=== PATIENT | male | born 1945 | race Caucasian/White ===

== ENCOUNTER → 2017-06-24 | Outpatient (CLI) | payer OTHER, MEDICARE ==
[~2017-06-24] MED LIST: HYDR25SU20 PR; LISI-461 PO; MULT-506 PO; SERT50TA PO
--- NOTE | 2017-06-25 05:51 | PAP/PSG TECHNICIAN REPORT ---
[facility] Customs Compliance Director Polysomnogram Report Study name: None Report date: 06/25/2017 Study date: 06/24/2017 Referring Physician: Dr. Joselyn Diallo M.D. Name: KELLI CAZARES Interpreting Physician: Rhys Jason M.D. Date of : 1945 Customs Compliance Director: Mya Johnson RPS. Sex: Male Age: 71 StudyType: PSG Weight: 191 lbs Height: 71 years, Height 5' 6" Neck Circum: 16.5 inches BMI: 30.82 Medications: Lisinopril 10 mg, Sertraline 50 mg Patient History 71 yr. old male here for a modified split night sleep study if AHI >15 in room 5. Patient also has upper limb monitoring for RBD. Patients complains of EDS. Sylvester Sleepiness Scale Score is 14/24. Parameters Monitored NPSG: E1-M2, E2-M1, Fp1-M2, Fp2-M1, F3-M2, F4-M2, F4-M1, C3-M2, C4-M2, C4-M1, O1-M2, O2-M2, O2-M1, T3-M2, T4-M1, P3-M2, P4-M1, CHIN1, CHIN2, HR, EKG, Legs, PFLOW, SNOR, FLOW, CFLOW, Tidal Volume, THOR, ABDO, SpO2, PLTH, CPRESS, ETCO2 Wave, ETCO2, pH Sleep Architecture Sleep Stages Time at Lights Off 10:16:12 PM STAGES Time (min.) TST (%) Time at Lights On 5:37:42 AM Wake 64.0 -- Total Recording Time (TRT) 441.50 min. N1 34.0 9 Total Sleep Period (TSP) 432.0 min. N2 251.0 66 Total Sleep Time (TST) 377.5min. N3 40.5 11 Awake Time 64.0 min. REM 52.0 14 Wake after Sleep Onset 54.5 min. Sleep Efficiency (SE) 86 % Sleep Onset Latency (RADHA) 9.5 min. Number of Stage 1 Shifts None Awakenings 19 Stage Changes 83 Number of REM periods 6 REM 52.0 14 REM Latency 172.5 min. NREM 325.5 86 Body Position Analysis Supine Right Left Side Prone Vertical Total Sleep Time (min.) 221.2 97.5 114.0 211.50 0.0 0.0 Total Sleep Time (%) 44% 26% 30% 56 0% N/A% Total Sleep Time REM (min.) 6.5 33.5 12.0 None 0.0 0.0 Total Sleep Time NREM (min.) 159.5 64.0 102.0 None 0.0 0.0 Intermittent Wake (min.) 55.2 6.2 2.7 None 0.0 0.0 Total Sleep Period (%) 49% None None None None None Arousals Myoclonus (PLM) * Events Count Index Events Count Index Spontaneous 5 1 Events Awake (PLMW) 53 49.7 Respiratory 3 0.6 Events Asleep w/ Arousal (PLMA) 12 1.9 PLM 12 2 Events Asleep w/o Arousal (PLMS) 311 49.4 Snoring 8 1 Total Asleep 323 51.3 Total 28 4 Total 376 51 Respiratory Analysis * CA OA MA CH H RERA Total Count 19 21 6 0 76 0 122 Index 3.0 3.3 1.0 0 12.1 0 19.4 Mean Duration 19.9 18.3 24.6 0.00 25.0 0.0 23.0 Longest Duration 30.8 27.3 36.2 0.00 36.2 0.0 53.0 Respiratory Event Summary Total Supine ~Supine Right Left Prone REM NREM Apneas Count 46 40 6 1 5 N/A 8 38 Index 7.3 14 2 0.6 2.6 N/A 9 7 Hypopneas (4% Desat) Count 76 62 14 4 10 N/A 4 72 Index 12.1 22.4 4 2.5 5.3 N/A 4.6 13.3 Apneas & All Hypopneas Count 122 102 20 5 15 N/A 12 110 Index 19.4 37 6 3 8 N/A 13.8 20.3 Respiratory Events (Ice [employer]er+All Hyp+RERA) Count 122 102 20 5 15 N/A 12 110 Index 19.4 37 6 3.1 7.9 N/A 13.8 20.3 Respiratory Related Arousal Count 3 102 0 0 0 N/A 1 3 Index 0.6 1 0 0 0 N/A 1 1 Snoring Analysis Supine Right Left Prone REM NREM Total Snore duration 6.4 min Snores count 208 33 9 N/A 52 198 250 Snore mean duration 1.5 Sec Snores index 75 20 5 N/A 60.0 36.5 39.7 TST with snoring (%) 1.7% Desaturation Event Summary: Minimum %SpO2 Event Count Mean/Min/Max Duration(sec.) Desaturation Index % Time In Bed > 90 119 23.5 / 11.0 / 55.3 17.8 92.2 86 - 90 0 N/A 0.0 7.6 81 - 85 1 16.8 / 16.8 / 16.8 62.6 0.2 76 - 80 0 N/A 0.0 0.0 71 - 75 0 N/A 0.0 0.0 66 - 70 0 N/A 0.0 0.0 61 - 65 0 N/A 0.0 0.0 56 - 60 0 N/A 0.0 0.0 51 - 55 0 N/A 0.0 0.0 < 50 0 N/A 0.0 0.0 Total REM NREM Awake <50% 0.0 min. 0.0 min. 0.0 min. 0.0 min. 51 - 60% 0.0 min. 0.0 min. 0.0 min. 0.0 min. 61 - 70% 0.0 min. 0.0 min. 0.0 min. 0.0 min. 71 - 80% 0.0 min. 0.0 min. 0.0 min. 0.0 min. 81 - 90% 34.2 min. 4.0 min. 27.8 min. 2.4 min. 91 - 100% 402.2 min. 47.9 min. 297.7 min. 56.6 min. Average 92 92 92 93 Minimum SpO2 83 87 83 83 Desaturation Event Index 16.3 15.0 18.4 6.6 # Desat. Events below 89% 28 3 22 3 Time(%) with Saturation below 89% 1.2 0.0 0.9 0.2 Time(min.) with Saturation below 89% 5.2 0.2 4.0 1.0 Time (mins) REM (mins) NREM (mins) % of TST SpO2 Below 90% 104 12 N92 2.7 SpO2 Below 88% 11 0 0 0 Heart Rate Analysis Min (bpm) Max (bpm) Average (bpm) Awake 43 196 66 NREM 43 76 53 REM 45 72 59 Overall 43 76 54 Supplemental O2 Values Minimum O2 level: None Value Start Time End Time Customs Compliance Director Comments Mr. Cazares's AHI at 2:45 pm was 10.3, he did not qualify for a split night sleep study. slept in the right, left, and supine positions. No cardiac arrhythmia. PLMs noted. No RBD noted. No bruxism noted. Snoring was noted and scored as a 3 on a scale of 0 through 5. (0=no snoring, 5=snoring loud enough to be heard through a closed door or down the joshi way) Mr. Cazares awoke to use the restroom once during the night. Mr. Cazares stated, "that was a normal night. The final report will be interpreted and signed by a sleep physician. The completed physician report will then be placed in the patient medical record. Therapy (cm H2O) 0 TIB (min.) 441.5 TST (min.) 377.5 Sleep Onset (min.) 9.5 REM Onset From Sleep (min.) 172.5 Sleep Efficiency % 86 Wakefulness (%) 14 Wakefulness (min.) 64.0 NREM 1 (%) 9 NREM 1 (min.) 34.0 NREM 2 (%) 66 NREM 2 (min.) 251.0 NREM 3 (%) 11 NREM 3 (min.) 40.5 REM (%) 14 REM (min.) 52.0 # Arousals 28 Arousal Index 4 # Snore 250 Snore Index 39.7 AHI 19.4 AHI Supine 37 AHI Non-Supine 6 NREM AHI 20.3 REM AHI 13.8 RDI 19.4 # Obstructive Apnea 21 # Central Apnea 19 # Mixed Apnea 6 # Hypopneas 76 RERAs 0 Total Respiratory Events 124 Time Below SpO2 89% (min.) 4.2 Mean NREM SpO2 (%) 92 Mean REM SpO2 (%) 92 Mean Sleep SpO2 (%) 92 Min NREM SpO2 (%) 83 Min REM SpO2 (%) 87 Position Supine (min.) 221.2 Position Non-supine (min.) 211.5 LM Index Sleep 51.3 LM Index NREM 53.6 LM Index REM 36.9 Mean Heart Rate (bpm) 54 Min Heart Rate (bpm) 43
--- NOTE | 2017-06-28 00:16 | POLYSOMNOGRAPH REPORT ---
CLINICAL DATA: A 71-year-old male with BMI of 30.[address] Diallo for a modified split night study. He has excessive daytime sleepiness. There was also a concern about REM behavior disorder. SLEEP ARCHITECTURE: Total sleep period was 432 minutes. Total sleep time was 377.5 minutes divided between 325 minutes of non-REM sleep and 52 minutes of REM sleep. Sleep onset latency was 9.5 minutes. REM latency was 172.5 minutes. Sleep efficiency was 86%. Wake after sleep onset was 54.5 minutes. Sleep consisted of stage N1 9%, stage N2 66%, stage N3 11%, and REM 14%. AROUSAL DATA: Twenty eight arousals were recorded for an index of 4 per hour. PERIODIC LIMB MOVEMENT DATA: Three hundred and twenty three limb movements during sleep were noted for an index of 51.3 per hour with arousal index of 1.9 per hour. RESPIRATORY DATA: Moderate sleep apnea was documented. The AHI was 19.4. There were 19 central, 21 obstructive, and 6 mixed apneic episodes. The longest apneic episode was 36.2 seconds. There were 76 hypopneic episodes with a mean duration of 25 seconds. OXIMETRY DATA: Mild nocturnal hypoxemia was seen. Oxygen jessa was 83% during non-REM sleep. Mean saturation was 93%. Time below 88% was 11 minutes. EKG: Heart rates ranged from 43-76 beats per minute. No arrhythmias were noted. DIRECTOR OF ENTERPRISE ARCHITECTURE'S COMMENTS: The patient did not meet split night criteria since his AHI at 2:45 a.m. was 10.3. He slept in the right, left, and supine positions. Snoring was moderate, rated 3 on a scale of 1-5. There was evidence of REM without atonia seen especially in the last REM period at the end of the night. IMPRESSION: 1. Moderate sleep apnea/hypopnea with mild nocturnal hypoxemia. 2. Evidence of increased EMG activity during REM sleep consistent with REM without atonia especially in his last REM. RECOMMENDATIONS: The patient should be considered for a repeat sleep study with CPAP. MTDD
== END | disposition home or self-care (01) ==
LOC: C.NEUR 20:00
PROVIDERS: ATTEND Internal Medicine
DX: G47.33 Obstructive sleep apnea (adult) (pediatric) (principal); G47.52 REM sleep behavior disorder

== ENCOUNTER 2023-07-16 11:04 | Observation (INO) ==
--- NOTE | 2023-06-16 11:59 | PAT Medication Instructions ---
Medication Instructions Date of Service June 16, 2023 Home Medications multivitamin 1 tab PO QAM sertraline 100 mg tablet 100 mg PO HS docosahexaenoic acid (dha)-epa capsule 1 cap PO HS lisinopril 20 mg tablet 20 mg PO BID metformin 500 mg tablet 500 mg PO QAM pravastatin 10 mg tablet 10 mg PO HS psyllium husk (with sugar) 3.4 gram/7 gram oral powder (Fiber (psyllium husk- sugar)) 1 tsp PO HS STOP taking 2 weeks before surgery (or as soon as possible if surgery is within 2 weeks) docosahexaenoic acid (dha)-epa capsule 1 cap PO HS DO NOT take the morning of surgery multivitamin 1 tab PO QAM lisinopril 20 mg tablet 20 mg PO BID metformin 500 mg tablet 500 mg PO QAM Take evening before surgery sertraline 100 mg tablet 100 mg PO HS lisinopril 20 mg tablet 20 mg PO BID pravastatin 10 mg tablet 10 mg PO HS psyllium husk (with sugar) 3.4 gram/7 gram oral powder (Fiber (psyllium husk- sugar)) 1 tsp PO HS Other Notes NOTHING TO EAT OR DRINK AFTER MIDNIGHT. If you have any questions please call us at [phone] or [phone] or [phone] or [phone]
--- NOTE | 2023-06-18 15:12 | Anesthesiology Consultation ---
Date of Service June 18, 2023 Assessment & Plan (1) Encounter for pre-operative examination: Chart Review Chart Review: Acceptable Risk for Surgery (pending surgeon ordered PCP clearance ) and Patient seen in Pre Admission Testing - Awaiting PCP clearance 06/24/23 ([facility]) - Check BSG AM DOS - Patient not an ideal OPJ candidate (currently 23 hour observation) Per PAT appt on 06/18/23, no recent illness/disease exposures, illness related symptoms, or recent illness/disease positive tests. Will leave to surgeon's discretion if preop Covid testing needed Teaching & Discussion Pre-Anesthesia Teaching/Discussion Notes: Instructed NPO after midnight before surgery,except medications with 15 cc of water. Medication instructions provided according to the [facility] guidelines. History Surgery Operation Date: 07/16/23 07:15 Proposed Procedures p Right Total Knee Arthroplasty - Aleksey Winter MD Height/Weight Height: 5 ft 6 in Weight: 78.3 kg Allergies Allergy/AdvReac Type Severity Reaction Status Date / Time No Known Allergies Allergy Unknown Verified 06/06/23 08:32 Medications Home Medications Medication Instructions Recorded Confirmed Last Taken multivitamin 1 tab PO QAM 10/28/18 06/06/23 Unknown sertraline 100 mg tablet 100 mg PO HS 10/28/18 06/06/23 Unknown docosahexaenoic acid (dha)-epa 1 cap PO HS 06/06/23 06/06/23 Unknown capsule lisinopril 20 mg tablet 20 mg PO BID 06/06/23 06/06/23 Unknown metformin 500 mg tablet 500 mg PO QAM 06/06/23 06/06/23 Unknown pravastatin 10 mg tablet 10 mg PO HS 06/06/23 06/06/23 Unknown psyllium husk (with sugar) 3.4 1 tsp PO HS 06/06/23 06/06/23 Unknown gram/7 gram oral powder (Fiber (psyllium husk-sugar)) Past Medical History Medical History Diabetes mellitus, type 2 Recently started Meformin (around Apr 2023) Guillain-Ross disease - hx, 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--per pt "was hunting on rainy, cold fall day and got soaked and developed a droop in his face"--completely went away, no further issues, pt questions if he really had this - no etiology known; no issues since then Hearing deficit Hearing aids bilaterally Hyperlipidemia Hypertension Post traumatic stress disorder Sleep apnea bipap Exercise / Class Metabolic Activity II 4-5 Yardwork/Stairs/Walk up hill (one flight of stairs- no chest pain or SOB; uses to ambulate when outside ) Past Family History Family History Other No family history of adverse response to anesthesia Past Surgical History Surgical History History of appendectomy History of cardiac cath 09/2015 @ [facility] "failed stress test @ [facility], had stress test due to breathing difficulty (worked in [employer])"--no stents History of colonoscopy History of left hip replacement History of repair of right rotator cuff History of tooth extraction upper denture Past Anesthesia History No Hx of Anesthesia Complications and No Family Hx of Anesthesia Complications History of PONV No Hx of PONV and No Hx of Motion Sickness Social History Smoking Status: Former smoker Do You Dip or Chew Tobacco: No (quit 40yrs ago) Smoking End Date: quit 50+yrs ago Hx Alcohol Use: No Hx Substance Use: No substance use type: does not use Review of Systems Patient denies chest pain, shortness of breath, dyspnea on exertion, reflux, cough, wheezing, palpitations. No hx of seizures, stroke, CA. No hx of blood clots or blood transfusions Physical Exam Vital Signs VITALS BP 103/64 P 71 TEMP 98.5 SP02 96% RESP 16 Constitutional no acute distress ENMT Mouth: no TMJ clicking Thyromental Distance: > or= 3.5 Finger Breadths (3.5) Mallampati Class: II Full denture on the top Missing all teeth on the bottom Neck + limited neck extension Respiratory normal respiratory effort; no respiratory distress Auscultation: lungs clear to auscultation bilaterally; no wheezes Cardiovascular Rate/Rhythm: regular rate and regular rhythm Heart Sounds: no murmur Vessels: no carotid bruit Musculoskeletal Spine: no pain with cervical ROM Extremities: extremities normal to inspection Psychiatric Orientation: alert Lab Results Anesthesia Preop Results Results Anesthesia Widget: WBC 5.26 K/ul (4.8-10.8) 06/18/23 Hgb 13.3 g/dl (14.0-18.0) L 06/18/23 Hct 38.7 % (42.0-52.0) L 06/18/23 Plt 188 K/uL (130-400) 06/18/23 Na 140 mmol/L (136-145) 06/18/23 K 4.0 mmol/L (3.5-5.1) 06/18/23 Cl 107 mmol/L (98-107) 06/18/23 CO2 27 mmol/L (21-32) 06/18/23 BUN 29 mg/dl (6-23) H 06/18/23 Creat 0.99 mg/dl (0.6-1.4) 06/18/23 Glucose Level 195 mg/dl (70-99(Fasting)) H 06/18/23 PT 11.1 Seconds (9.0-12.0) 06/18/23 PTT 29 Seconds (21-31) 06/18/23 INR 1.0 (0.9-1.1) 06/18/23 HA1c 7.2 % (4.5-5.6) H 06/18/23 Urine Color Dark Yellow 06/18/23 Urine Appearance Clear (Clear) 06/18/23 Urine pH 5.0 (4.5-7.5) 06/18/23 Urine Specific Barton 1.027 (1.000-1.030) 06/18/23 Urine Protein Negative (Negative) 06/18/23 Urine Glucose (UA) Negative (Negative) 06/18/23 Urine Ketones Trace (Negative) H 06/18/23 Urine Blood Negative (Negative) 06/18/23 Urine Nitrite Negative (Negative) 06/18/23 Urine Bilirubin Negative (Negative) 06/18/23 Urine Urobilinogen Negative (Negative) 06/18/23 Urine Leukocyte Esterase Negative (Negative) 06/18/23 Blood Type AB Positive 06/18/23 Antibody Screen NEGATIVE 06/18/23 Testing Electrocardiogram Date: 06/18/23 Findings: + NSR @ (68bpm) Normal EKG per cardio Chest X-Ray Date: 06/18/23 FINDINGS: PA and lateral chest radiographs are compared to study dated 11/05/2013. The cardiomediastinal silhouette is top normal for projection noting atherosclerotic calcification of the thoracic aorta. The lungs and pleural spaces are clear. There is no pneumothorax. The skeletal structures are osteopenic. The bony thorax appears intact. Arthritic change is noted in the left shoulder a right shoulder arthroplasty is in place. Degenerative change and scoliosis is seen in the spine. IMPRESSION: No active disease in the chest.
--- NOTE | 2023-07-06 09:31 | History & Physical Report ---
Date of Service July 06, 2023 Assessment & Plan (1) Osteoarthritis of right knee: Plan: Right knee end-stage osteoarthritis. Grade 4 osteoarthritis failed conservative management. Bone loss medial compartment. Plan is to proceed with a right total knee replacement. Risks and benefits discussed. Plan for persona total knee replacement CPS tibial insert and tibial cemented stem. History of Present Illness Chief Complaint: Right knee pain Primary Care Provider: Fermin Ortega MD 77-year-old male with chronic progressive right knee pain failed conservative management. Had previous steroid and viscosupplementation injections. Injections are no longer helping. Patient denies headaches, sweats, fevers, chills, double vision, blurred vision, cough, sore throat, dysphagia, chest pain, sob, wheezing, n/v/d/c, fatigue, urinary symptoms. ROS positive for sleep apnea snoring, hypertension, left hand numbness, anxiety/depression, questionable easy bruising degenerative arthritis. Allergies Allergy/AdvReac Type Severity Reaction Status Date / Time No Known Allergies Allergy Unknown Verified 06/06/23 08:32 Home Medications Medication Instructions Recorded Confirmed Type multivitamin 1 tab PO QAM 10/28/18 06/06/23 History sertraline 100 mg tablet 100 mg PO HS 10/28/18 06/06/23 History docosahexaenoic acid (dha)-epa 1 cap PO HS 06/06/23 06/06/23 History capsule lisinopril 20 mg tablet 20 mg PO BID 06/06/23 06/06/23 History metformin 500 mg tablet 500 mg PO QAM 06/06/23 06/06/23 History pravastatin 10 mg tablet 10 mg PO HS 06/06/23 06/06/23 History psyllium husk (with sugar) 3.4 1 tsp PO HS 06/06/23 06/06/23 History gram/7 gram oral powder (Fiber (psyllium husk-sugar)) Past Med/Surg History Medical History Diabetes mellitus, type 2 Recently started Meformin (around Apr 2023) Hearing deficit Hearing aids bilaterally Post traumatic stress disorder Hyperlipidemia Sleep apnea bipap Hypertension Guillain-[place] disease - hx, 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--per pt "was hunting on rainy, cold fall day and got soaked and developed a droop in his face"--completely went away, no further issues, pt questions if he really had this - no etiology known; no issues since then Surgical History History of cardiac cath 09/2015 @ [facility] "failed stress test @ [facility], had stress test due to breathing difficulty (worked in [employer])"--no stents History of colonoscopy History of appendectomy History of tooth extraction upper denture History of left hip replacement History of repair of right rotator cuff Family History Other No family history of adverse response to anesthesia Social History Smoking Status: Former smoker Tobacco Type: Cigarettes Second Hand Exposure: No; Do You Dip or Chew Tobacco: No (quit 40yrs ago); Hx Alcohol Use: No Hx Substance Use: No Preferred Language: Welsh Communication Ability: Effective Pitching Coach Required: No Beliefs That Will Affect Care: Restorationism Restorationism Beliefs: Religion marital status: Current Living Situation: Spouse current occupational status: retired Assistive Devices: BiPap, Denture - Upper, Glasses and Hearing Aid - Bilateral Review of Systems All systems reviewed & are unremarkable except as noted in HPI & below Physical Exam Constitutional: WD/WN, vitals as above Respiratory: normal respiratory effort; no respiratory distress Cardiovascular: Rate/Rhythm: regular rate and regular rhythm Musculoskeletal: Right knee exam demonstrates 5 through 120 degrees range of motion with knee effusion medial joint line tenderness mild medial pseudolaxity. Skin: no rashes, warm and dry Neurologic: normal touch/pain/proprioception Psychiatric: A+Ox3, euthymic affect Results & Data Diagnostic Findings Right knee x-rays demonstrate varus alignment [id number] medial compartment bone loss medial tibial plateau periarticular osteophytes.
[~2023-07-16 11:04] MED LIST changes: +BUPIVACAINE 0.25% PF 30 ML VIAL ONE; +BUPIVACAINE 0.5 % 5 MG/1 ML PF 10ML VIAL ONE; +DEXAMETHASONE SOD INJ 4 MG/ML VIAL ONE; +EPINEPHrine INJ 1 MG/ML AMP ONE; -HYDR25SU20 PR; -LISI-461 PO; +MIDAZOLAM HCL 1 MG/ML 2ML VIAL ONE; -MULT-506 PO; -SERT50TA PO; +fentaNYL citrate PF 100 MCG/2 ML VIAL ONE
[2023-07-16] MEDS: METOCLOPRAMIDE HCL 10 MG TABLET PO SCH (11:36)
[2023-07-16] MEDS: GABAPENTIN 300 MG CAP PO SCH (11:36)
[2023-07-16] MEDS: ACETAMINOPHEN 500 MG TAB PO SCH ×2 (11:36→21:23)
[2023-07-16] MEDS: CeleBREX 200 MG CAP PO SCH (11:36)
[2023-07-16] MEDS: FAMOTIDINE 20 MG TAB PO SCH (11:36)
[2023-07-16] MEDS: LR 60ML/HR IV SCH (11:37)
[2023-07-16] MEDS ORDERED: ONDANSETRON INJ 2 MG/ML 2 ML VIAL IV PRN ×2 (11:41→16:24)
[2023-07-16] MEDS ORDERED: ATROPINE SULFATE 0.1 MG/ML 10ML SYR IV PRN (11:41)
[2023-07-16] MEDS ORDERED: fentaNYL citrate PF 100 MCG/2 ML VIAL IV PRN (11:41)
[2023-07-16] MEDS ORDERED: PROMETHAZINE HCL 6.25 MG in SODIUM CHLORIDE 0.9% 50 ML IV PRN (11:41)
[2023-07-16] MEDS ORDERED: ePHEDrine sulfate 50 MG/ML AMP IV PRN (11:41)
[2023-07-16] MEDS: LR 500ML BOLUS, THEN 15ML/HR IV SCH (11:45)
--- NOTE | 2023-07-16 11:47 | History & Physical Bridge Note ---
Date of Service July 16, 2023 History & Physical Bridge Note I have examined the patient, reviewed the History & Physical and in the interval since the performance of the History & Physical I have noted the following changes of clinical significance: Small superficial abrasion no drainage no erythema right pretibial area
[2023-07-16] MEDS: TRANEXAMIC ACID 1,000 MG **IV Pre-op IV SCH (12:07)
[2023-07-16] MEDS: ceFAZolin 2000MG 2,000 MG/15 ML SYR IV SCH ×2 (12:39→20:35)
[2023-07-16] MEDS ORDERED: LIDOCAINE 2% 2 ML VIAL/AMP(20MG/ML) INFIL ONE (13:07)
[2023-07-16] MEDS ORDERED: PROPOFOL IV EMULSION 10 MG/ML 20 ML VIAL IV ONE ×2 (13:07→14:47)
[2023-07-16] MEDS ORDERED: ePHEDrine sulfate 50 MG/5 ML SYR ONE (13:11)
[2023-07-16] MEDS: ORTHO JOINT ANESTHETIC ONE (13:17)
[2023-07-16] MEDS: TRANEXAMIC ACID 1,000 MG **IV Intra-op IV SCH (14:20)
[2023-07-16] MEDS: ROPIV 0.5% 246mg, Ketorolac 30mg, EPINEPHrine 0.5mg in NSS INFIL SCH (14:28)
--- NOTE | 2023-07-16 14:38 | Operative Report ---
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 I identified the patient and participated in the time-out.: Yes Procedure Operation Date: 07/16/23 12:45 Actual Procedures p Right Total Knee Arthroplasty(Right), sherlyn and Acticoat superficial wound VAC application- Aleksey Winter MD Surgeon Aleksey Winter MD [employer] Driver Juan R CRUM Estimated Blood Loss 5 Findings Consistent with Post-Op Diagnosis Specimens Bone cuts Drains 2 Hemovac Complications none Disposition Disposition: Recovery Room Indications 77-year-old male with chronic progressive osteoarthritis in his right knee with progressive bone loss over time with subluxation the femur medially on the tibia and bone loss in the medial compartment with a varus knee. Description of Procedure Patient taken to the operating room the size under spinal MAC regional block anesthesia. Patient was placed supine on the operating table. A pneumatic tourniquet was placed about the right upper thigh. The right lower extremity was prepped and draped in sterile fashion. Knee exam demonstrated thin leg with a varus knee no pseudolaxity a 15 degree flexion contracture with flexion to 120 degrees. The leg was elevated exsanguinated with an Esmarch bandage and pneumatic tourniquet was raised to 275 millimeters of mercury. Skin incised sharply in longitudinal fashion. Subcutaneous flaps elevated. Incision was made through the medial retinaculum extending up in the mid third of the quadriceps tendon and down to the medial tibial tubercle. Intra-articular findings demonstrated grade 4 osteoarthritis medial compartment and lateral compartment with subluxation the femur medial on the tibia and bone loss medial femoral condyle and tibial plateau. Due to subluxation there was [id number] half of the lateral compartment as well. There was a chronic ACL tear. Both meniscus had degenerative tears that were substantial. Patella had osteophytes circumferentially but maintained articular surface. The [employer] persona total knee arthroplasty system was used. To expose the knee the infrapatellar fat pad was resected. The meniscal remnants and cruciate ligaments were resected. The anterior fat pad over the femur in the area of the location of the anterior flange of the femoral component was resected. The lateral synovial bands were released. The femur was exposed. An intramedullary drill hole was made into the canal. A guide yosvany was placed. Distal femoral cutting guide was adjusted to resect a 5 degree valgus cut with +2 additional millimeters distal femur resected from the standard cut. The knee was extended and a subperiosteal peel lateral release was performed around the patella. Patella width was measured and width was reproduced using a freehand cut technique and a 38 symmetrical patella component. The 3 drill holes were made and the excess lateral facet was beveled off to prevent any impingement. Attention was taken back to the femur which was exposed with retractors and the femoral sizing guide was pinned in position. The drill holes were placed in 3 of external rotation to match the epicondylar axis. The femur sized for a 11 component. The 11had a better medial lateral fit and I had to plus shift this 1.5 mm in order not to notch anteriorly. The 4-in-1 cutting block was placed and then the anterior posterior and chamfer cuts are made. The tibia was then subluxed. The external tibial cutting guide was adjusted to make a perpendicular cut to the long axis of the tibia below the most deficient bone loss side. Cut was adjusted for slope. A lamina voice over announcer was used and the flexion extension gaps were balanced. Medial and posterior medial releases without hamstring release were required. All medial and posterior osteophytes removed. All meniscal remnants were resected. The tibia exposed and the trial tibial component size G was externally rotated in line with the tibial tubercle and pinned in position. The drill and punch for cemented stem was used. The femoral trial was inserted. The notch was cut and the collet was placed. Trial tibial inserts were placed and size 14 mm CPS gave balanced ligaments through flexion and extension. Pa tella tracking was assessed. The patella tracked centrally. The trial components were then removed and the orthomix anesthetic cocktail was injected per protocol. The knee was then copiously irrigated with pulsatile lavage saline solution. Final components were then cemented with Refobacin cement. Xperience irrigation placed over metal compoments prior to polyethylene insertion. Final components were [employer] persona right posterior stabilized 11 standard femoral component, right G tibia with a 14 x 30 mm cemented stem and a 14 right CPS tibial polyethylene insert and a 38 mm symmetr ical patella insert. After the cement cured further pulsatile lavage irrigation was then performed with Xperience and 2 Hemovac drains were brought out laterally. The quadriceps tendon and medial retinaculum were closed with figure of 8 #1 Vicryl sutures. The knee was taken through full range of motion and the repair was secure. Knee range of motion was 0 through 130 degrees. The subcutaneous tissues were closed with 2-0 Vicryl sutures. Skin was closed with surgical christofer. A sherlyn and Acticoat superficial wound VAC was applied. The patient tolerated the procedure well. Jua nR CRUM was my physician per diem physical therapist assistant who participated as first aid nurse and was involved in all aspects of the procedure including patient positioning prepping and draping,leg positioning ,soft tissue retraction and instrument management and participated in the closing and application of superficial wound VAC and will participate in postoperative care of the patient. The patient tolerated the procedure well. I attest to the content of the Intraoperative Record and any orders documented therein. Any exceptions are noted below.
--- NOTE | 2023-07-16 15:09 | Anesthesiology Progress Note ---
Date of Service July 16, 2023 Anesthesia Post Procedure Vital Signs Vital Signs: Temp Pulse Pulse Resp BP Pulse Ox O2 Del Method 07/16/23 15:00 71 16 132/65 100 Oxymask 07/16/23 14:53 36.2 C L 68 16 134/62 100 Oxymask 07/16/23 11:26 36.5 C 67 18 125/72 96 Room Air O2 Flow Rate 07/16/23 15:00 5 07/16/23 14:53 5 07/16/23 11:26 Pain Intensity Right Knee: Pain Intensity: 4 Transfer of Care Handoff Completed per policy Notes Mental Status: alert / awake / arousable Patient Amnestic to Procedure: Yes Nausea / Vomiting: adequately controlled Pain: adequately controlled Airway Patency, RR, SpO2: stable & adequate BP & HR: stable & adequate Hydration State: stable & adequate Neuraxial Anesthesia: was administered and sensory block is resolving Anesthetic Complications: no major complications apparent and Pt Satisfied with anesthetic care
--- NOTE | 2023-07-16 15:23 | XRay Report ---
TWO VIEWS RIGHT KNEE CLINICAL HISTORY: Postoperative examination. FINDINGS: AP and crosstable lateral portable views of the right knee are obtained. A right knee arthr oplasty is in near anatomic alignment. There has been undersurface remodeling of the patella. No acut e fracture is seen. There are expected postoperative changes around the knee including skin clips, a surgical drain, soft tissue edema, and subcutaneous gas. IMPRESSION: Expected postoperative changes status post right knee arthroplasty. No acute fracture is seen. ACT 112: Negative or not required by law. Electronically signed by: Ishmael Marcelino M.D. 07/16/2023 3:21 PM
[2023-07-16] MEDS ORDERED: MAGNESIUM HYDROXIDE SUSP 30 ML UDC PO PRN (16:24)
[2023-07-16] MEDS ORDERED: bisacodyL 10 MG SUPP PR PRN (16:24)
[2023-07-16] MEDS ORDERED: NALOXONE HCL 0.4 MG/1 ML VIAL/CARP IV PRN (16:24)
[2023-07-16] MEDS ORDERED: PHARMACY GLYCEMIC MGMT CONSULT PRN (16:24)
[2023-07-16] MEDS ORDERED: HYDROmorphone INJ 0.5 MG/0.5 ML SYR IV PRN (16:24)
[2023-07-16] MEDS ORDERED: diphenhydrAMINE 50 MG/ML VIAL IV PRN (16:24)
[2023-07-16] MEDS: SODIUM CHLORIDE 0.9% 1,000 ML IV SCH (16:46)
[2023-07-16] MEDS ORDERED: GLUCOSE 10 TAB/TUBE PO PRN (17:00)
[2023-07-16] MEDS ORDERED: GLUCOSE 40% GEL 15 GM TUBE PO PRN (17:00)
[2023-07-16] MEDS ORDERED: GLUCAGON FOR INJ 1 MG VIAL IM PRN (17:00)
[2023-07-16] MEDS ORDERED: CARBOHYDRATES FOR HYPOGLYCEMIA PO PRN (17:00)
[2023-07-16] MEDS ORDERED: DEXTROSE 50% 50 ML SYRINGE IV PRN (17:00)
[2023-07-16] MEDS: INSULIN ASPART PER UNIT CHARGE SC SCH (17:59)
--- NOTE | 2023-07-16 18:35 | Consultation ---
Date of Consultation July 16, 2023 Assessment & Plan (1) Status post right knee replacement: (2) Osteoarthritis of right knee: -POD#0 s/p right TKA with Dr. Winter. -Per ortho for pain control, wound care, anticoagulation and activities -Monitor H&H, continue incentive spirometry, PT/OT when appropriate; pre-op Hgb was 13.3. -EBL: 5mL (3) Hypertension: -Continue lisinopril beginning tomorrow AM (4) Diabetes mellitus, type 2: -A1c 7.2 on 06/18/2023 -Hold home metformin -Novolog sliding scale per glycemic pharmacist, appreciate their glycemic management (5) Sleep apnea: -Continue BiPAP HS (6) Hyperlipidemia: -Chronic, stable -Continue pravastatin (7) Depression: -Chronic, stable -Continue sertraline DVT Prophylaxis: SCDs Code Status: Full Code PCP: Fermin Ortega MD Dispo: Per primary team Patient seen in collaboration with Dr. Greenfield. Please see addendum. Thank you for this consultation. We will follow the patient with you during their hospital stay. You can reach a member of the [facility] Hospitalist Team 07/10 via [employer]. I spent a total of 75 minutes coordinating, documenting, and providing care for this patient excluding time spent in the performance of separately billed services. This included personally reviewing all current laboratories and imaging studies, medical reconciliation, outpatient chart review and discussion with specialists. Supervising Physician Co-Signing Physician Notes Patient was seen and examined independently at bedside. Chart reviewed. Case discussed and agree with the documentation above. In summary, this is a 77 year old male with OA right knee who underwent right TKA, sherlyn and superficial wound vac application by Dr Winter today. Hospitalist service consulted for post op management. Feels good. No pain yet. Tolerating diet well. No N/V/CP/SOB. Did not void yet. Vitals stable. Chronic medical conditions stable. Rest as per the note above. at bedside. On exam- General: Lying comfortably in bed, not in distress, on room air HEENT: EOMI, LOUANN, MMM Chest: Clear breath sounds bilaterally, no wheezes or crackles CVS: Regular rate and rhythm, normal heart sounds, no murmur Abdomen: Soft, non tender, not distended, normal bowel sounds Neuro: Awake, alert, oriented, conversing well, non focal MSK: Right knee covered with dressing and ice pack, Hemovac suction with serosanguineous output History of Present Illness Requesting Physician: Aleksey Winter MD Reason for Consultation: Post-Operative Medical Management Attending Physician: Aleksey Winter MD History of Present Illness Coleman Cazares is a 77y/o M with PMHx of type II DM with diabetic dermatitis, h yperlipidemia, HTN, PTSD/major depressive disorder, LIZA on BiPAP and primary osteoarthritis in both knees who presented to the hospital today to undergo elective right total knee arthroplasty d/t end-stage osteoarthritis resistant to conservative management. S/p right TKA by Dr. Winter. History obtained from patient, and previous PCP/surgical records. Patient was seen at bedside post-operatively, and was accompanied in the room by his . Patient reports no pain at this time, as the surgical site/right leg is still rather numb. He also denies any SOB or chest pain. 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 Patient has not urinated yet since arriving to the floor; patient was provided with a urinal. Tolerated diet w/ no issues. Patient is tolerating sips of water at this time. Patient denies any headaches, stomach pain and N/V. He has not been out of bed since arriving to the floor. Overall, patient is feeling comfortable post-operatively. Allergies Allergy/AdvReac Type Severity Reaction Status Date / Time No Known Allergies Allergy Unknown Verified 07/16/23 11:31 Home Medications Medication Instructions Recorded Confirmed Type multivitamin 1 tab PO QAM 10/28/18 07/16/23 History sertraline 100 mg tablet 100 mg PO HS 10/28/18 07/16/23 History docosahexaenoic acid (dha)-epa 1 cap PO HS 06/06/23 07/16/23 History capsule lisinopril 20 mg tablet 20 mg PO DAILY 06/06/23 07/16/23 History metformin 500 mg tablet 500 mg PO QAM 06/06/23 07/16/23 History pravastatin 10 mg tablet 10 mg PO HS 06/06/23 07/16/23 History psyllium husk (with sugar) 3.4 1 tsp PO HS 06/06/23 07/16/23 History gram/7 gram oral powder (Fiber (psyllium husk-sugar)) Patient History Medical History Depression Diabetes mellitus, type 2 Recently started Meformin (around Apr 2023) Hearing deficit Hearing aids bilaterally Post traumatic stress disorder Hyperlipidemia Sleep apnea bipap Hypertension Guillain-Adin disease - hx, 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 Winter on 07/16/2023 at [facility]. History of cardiac cath 09/2015 @ [facility] "failed stress test @ [facility], had stress test due to breathing difficulty (worked in [employer])"--no stents History of colonoscopy History of appendectomy History of tooth extraction upper denture History of left hip replacement History of repair of right rotator cuff Family History Other No family history of adverse response to anesthesia Social History Smoking Status: Former smoker Tobacco Type: Cigarettes Smoking End Date: quit 50+yrs ago; Second Hand Exposure: No; Do You Dip or Chew Tobacco: No (quit 40yrs ago); Tobacco Cessation Education Requested by Patient: No Hx Alcohol Use: No Hx Substance Use: No Preferred Language: Hong Konger Communication Ability: Effective Fashion Buyer Required: No Beliefs That Will Affect Care: Temple Temple Beliefs: Spiritism marital status: Current Living Situation: Spouse current occupational status: retired Other Information That Helps Us Care for You: No Assistive Devices: BiPap, Denture - Upper, Glasses and Hearing Aid - Bilateral Assistive Devices Comment: reading glasses Review of Systems Review of Systems: At least ten systems reviewed and negative, except as noted in the HPI. Physical Exam Physical Exam: General Appearance: WD/WN, vitals as above, NAD, sitting up in bed, pleasant, conversing. Head: Normocephalic, atraumatic. Eyes: Normal inspection, PERRL, conjunctivae normal, anicteric sclerae. ENT: External ear and nose normal, oropharynx normal. Neck: Normal visual inspection, trachea midline, no thyromegaly. Respiratory: Normal respiratory effort, lungs clear to auscultation. No accessory muscle use. Cardiovascular: Regular rate, rhythm, no murmur, normal peripheral pulses, no BLE edema. SCDs present bilaterally. Palpable dorsalis pedis pulse in right foot. Vessels: No JVD Chest: Normal inspection of chest. Abdomen/GI: Normal bowel sounds, soft, nontender, no hepatosplenomegaly. Extremities/Musculoskeletal: No cyanosis or clubbing. Surgical dressing in place, dry and intact. Drain in place. Still numb and unable to move right leg at this time. Neurologic: Sensation to touch of the right foot intact. Psychiatric: A+Ox3, euthymic affect. Skin: No rashes, normal color, warm/dry. Results & Data Vital Signs (Past 12 Hours) Vital Signs Temp Pulse Pulse Resp BP Pulse Ox O2 Del Method 07/16/23 18:00 36.3 C L 66 16 146/77 H 95 Room Air 07/16/23 16:59 36.2 C L 62 18 139/69 96 Room Air 07/16/23 16:30 36.2 C L 64 16 137/63 97 Room Air 07/16/23 16:00 36.2 C L 68 16 149/73 H 99 Room Air 07/16/23 15:45 65 15 130/79 98 Room Air 07/16/23 15:30 36.4 C L 66 15 125/68 98 Room Air 07/16/23 15:20 66 14 138/71 100 Room Air 07/16/23 15:10 73 14 136/67 100 Oxymask 07/16/23 15:00 71 16 132/65 100 Oxymask 07/16/23 14:53 36.2 C L 68 16 134/62 100 Oxymask 07/16/23 11:26 36.5 C 67 18 125/72 96 Room Air O2 Flow Rate 07/16/23 18:00 07/16/23 16:59 07/16/23 16:30 07/16/23 16:00 07/16/23 15:45 07/16/23 15:30 07/16/23 15:20 07/16/23 15:10 5 07/16/23 15:00 5 07/16/23 14:53 5 07/16/23 11:26 Diagnostic Findings Knee X-Ray 07/16/23 15:03 TWO VIEWS RIGHT KNEE CLINICAL HISTORY: Postoperative examination. FINDINGS: AP and crosstable lateral portable views of the right knee are obtained. A right knee arthroplasty is in near anatomic alignment. There has been undersurface remodeling of the patella. No acute fracture is seen. There are expected postoperative changes around the knee including skin clips, a surgical drain, soft tissue edema, and subcutaneous gas. IMPRESSION: Expected postoperative changes status post right knee arthroplasty. No acute fracture is seen. ACT 112: Negative or not required by law. Electronically signed by: Ishmael Marcelino M.D. 07/16/2023 3:21 PM Medications Administered Sodium Chloride (Nss) 1,000 mls @ 100 mls/hr IV .Q10H STEVE Stop: 07/17/23 06:00 Last Admin: 07/16/23 16:46 Dose: 100 mls/hr Documented By: RUBY Insulin Aspart (Insulin Aspart Per Unit Charge) 0 units SC ACHS STEVE Stop: 08/15/23 16:59 Last Admin: 07/16/23 17:59 Dose: 4 units Documented By: RUBY Co-signed By: PEDRO Discontinued Medications Acetaminophen (Acetaminophen 500 Mg Tab) 1,000 mg PO PREOP STEVE Stop: 07/16/23 18:00 Last Admin: 07/16/23 11:36 Dose: 1,000 mg Documented By: TEODORO Celecoxib (Celebrex 200 Mg Cap) 200 mg PO PREOP STEVE Stop: 07/16/23 18:00 Last Admin: 07/16/23 11:36 Dose: 200 mg Documented By: TEODORO Famotidine (Famotidine 20 Mg Tab) 20 mg PO PREOP STEVE Stop: 07/16/23 18:00 Last Admin: 07/16/23 11:36 Dose: 20 mg Documented By: CARLEYM Gabapentin (Gabapentin 300 Mg Cap) 300 mg PO PREOP STEVE Stop: 07/16/23 18:00 Last Admin: 07/16/23 11:36 Dose: 300 mg Documented By: TEODORO Lactated Ringer's (Lr) 1,000 mls @ 15 mls/hr IV .Q24H [facility] Stop: 07/16/23 18:00 Last Infusion: 07/16/23 12:37 Dose: Infused Documented By: Admin: 07/16/23 11:45 Dose: 15 mls/hr Documented By: TEODORO Lactated Ringer's (Lr) 1,000 mls @ 60 mls/hr IV .[id number] [facility] Stop: 07/16/23 22:39 Last Admin: 07/16/23 11:37 Dose: Not Given Documented By: TEODORO Cefazolin Sodium (Ancef 2000mg) 2,000 mg in 15 mls @ 3.75 mls/min IV PREOP [facility]; Protocol Stop: 07/16/23 18:00 Last Admin: 07/16/23 12:39 Dose: 3.75 mls/min Documented By: [id number] Ropivacaine 246 mg/ Ketorolac Tromethamine 30 mg/Epinephrine HCl 0.5 mg/ Sodium Chloride 100.7 mls @ 0 mls/hr INFIL TODAY@0600 [facility]; Protocol Stop: 07/16/23 16:00 Last Admin: 07/16/23 14:28 Dose: 100 mls/hr Documented By: ISABEL Tranexamic Acid (Tranexamic Acid / 0.7% Nacl) 1,000 mg in 100 mls @ 600 mls/hr IV TODAY@0600 [facility] Stop: 07/16/23 18:00 Last Infusion: 07/16/23 12:37 Dose: Infused Documented By: Admin: 07/16/23 12:07 Dose: 600 mls/hr Documented By: TEODORO Tranexamic Acid (Tranexamic Acid / 0.7% Nacl) 1,000 mg in 100 mls @ 600 mls/hr IV TODAY@0600 [facility] Stop: 07/16/23 18:00 Last Infusion: 07/16/23 16:25 Dose: Infused Documented By: Admin: 07/16/23 14:20 Dose: 600 mls/hr Documented By: [id number] Metoclopramide HCl (Metoclopramide Hcl 10 Mg Tablet) 10 mg PO PREOP STEVE Stop: 07/16/23 18:00 Last Admin: 07/16/23 11:36 Dose: 10 mg Documented By: TEODORO Miscellaneous (Ortho Joint Anesthetic ) Confirm Administered Dose 1 each .ROUTE .STK-MED ONE Stop: 07/16/23 12:17 Last Admin: 07/16/23 13:17 Dose: Not Given Documented By: ARIANNE
[2023-07-16] MEDS: SERTRALINE HCL 100 MG TABLET PO SCH (20:34)
[2023-07-16] MEDS: DOCUSATE SODIUM 100 MG CAP PO SCH (20:34)
[2023-07-16] MEDS: ASPIRIN 81 MG ECTAB PO SCH (20:34)
[2023-07-16] MEDS: SENNA 8.6 MG TAB PO SCH (20:34)
[2023-07-16] MEDS: PRAVASTATIN SOD 10 MG TAB PO SCH (20:34)
[2023-07-16] MEDS ORDERED: INSULIN ASPART PER UNIT CHARGE SC SCH (21:00)
[2023-07-16] MEDS ORDERED: lisinopril 20 MG TAB PO SCH (21:00)
[2023-07-16] MEDS: LANTUS PER UNIT CHARGE SC ONE (21:24)
[2023-07-16] MEDS: oxyCODONE HCL IR 5 MG TAB (IMMEDIATE RELEASE) PO PRN (23:06)
[2023-07-17 06:32] LABS: Hematocrit (blood only) 37.3 % (42.0-52.0); Hemoglobin 12.5 g/dl (14.0-18.0); Mean Corpuscular Hemoglobin 30.2 pg (25.0-34.0); Mean Corpuscular Hgb Conc 33.5 g/dL (32.0-36.0); Mean Corpuscular Volume 90.1 fL (80.0-100.0); Platelet Count 191 K/uL (130-400); RDW Coefficient of Variation 12.5 % (11.5-14.5); RDW Standard Deviation 40.9 fL (36.4-46.3); Red Blood Count 4.14 M/uL (4.70-6.10); White Blood Count 9.05 K/ul (4.8-10.8)
[2023-07-17 07:17] LABS: BUN Creatinine Ratio 19.6 (10-20); Calcium 8.4 mg/dl (8.6-10.3); Creatinine Clr Calc Pharmacy 58.7 ml/min; Est GFR (African American) 86.3 ml/min; Est GFR (Non-African American) 74.5 ml/min
--- NOTE | 2023-07-17 07:43 | Orthopedic Progress Note ---
Date of Service July 17, 2023 Assessment & Plan (1) Osteoarthritis of right knee: Plan: Postop day 1 status post right total knee arthroplasty PT/OT protocols. Weightbearing as tolerated. DVT prophylaxis-aspirin p.o. twice daily, SCDs, YOLANDA stanley. Pain management as written. DC planning-patient is planning for home health services upon discharge. Patient will need his drain removed if possible from the home health services on postop day 2. If home health is unable to accommodate, patient will need to return to the clinic tomorrow for drain removal and dressing change. Admission and Anticipated Discharge Date Admission Date: July 16, 2023 Subjective Postop day 1 Patient sitting up in bed awake and alert. No complaints this morning. Pain is controlled. Patient states he had a good night. Denies shortness of breath, chest pain, lightheadedness. Patient is hoping to go home today. Physical Exam Physical Exam: Dressings are clean, dry, and intact. Calves are soft nontender. Neurovascular intact. Toes are mobile. Patient had 175 cc of drainage from the previous shift from his Hemovac. Results & Data Vital Signs (Past 12 Hours) Vital Signs Temp Pulse Resp BP Pulse Ox O2 Del Method 07/17/23 07:35 36.3 C L 56 L 16 169/84 H 95 Room Air 07/17/23 03:00 36.3 C L 65 18 147/77 H 96 Room Air 07/16/23 23:00 36.8 C 73 19 133/69 96 Room Air Laboratory Results Laboratory Results WBC 9.05 K/ul (4.8-10.8) 07/17/23 05:35 RBC 4.14 M/uL (4.70-6.10) L 07/17/23 05:35 Hgb 12.5 g/dl (14.0-18.0) L 07/17/23 05:35 Hct 37.3 % (42.0-52.0) L 07/17/23 05:35 MCV 90.1 fL (80.0-100.0) 07/17/23 05:35 MCH 30.2 pg (25.0-34.0) 07/17/23 05:35 MCHC 33.5 g/dL (32.0-36.0) 07/17/23 05:35 RDW Std Deviation 40.9 fL (36.4-46.3) 07/17/23 05:35 RDW Coeff of Cici 12.5 % (11.5-14.5) 07/17/23 05:35 Plt Count 191 K/uL (130-400) 07/17/23 05:35 MPV 11.0 fL (9.4-12.4) 07/17/23 05:35 Sodium 139 mmol/L (136-145) 07/17/23 05:35 Potassium 4.0 mmol/L (3.5-5.1) 07/17/23 05:35 Chloride 106 mmol/L (98-107) 07/17/23 05:35 Carbon Dioxide 27 mmol/L (21-32) 07/17/23 05:35 Anion Gap 6 (3-11) 07/17/23 05:35 BUN 19 mg/dl (6-23) 07/17/23 05:35 Creatinine 0.97 mg/dl (0.6-1.4) 07/17/23 05:35 Est Cr Clr Drug Dosing 58.7 ml/min 07/17/23 05:35 Est GFR ( Amer) 86.3 ml/min 07/17/23 05:35 Est GFR (Non-Af Amer) 74.5 ml/min 07/17/23 05:35 BUN/Creatinine Ratio 19.6 (10-20) 07/17/23 05:35 Glucose 141 mg/dl (70-99(Fasting)) H 07/17/23 05:35 POC Glucose 130 mg/dl (70-99) H 07/17/23 07:38 Calcium 8.4 mg/dl (8.6-10.3) L 07/17/23 05:35 Impressions Knee X-Ray 07/16/23 15:03 TWO VIEWS RIGHT KNEE CLINICAL HISTORY: Postoperative examination. FINDINGS: AP and crosstable lateral portable views of the right knee are obtained. A right knee arthroplasty is in near anatomic alignment. There has been undersurface remodeling of the patella. No acute fracture is seen. There are expected postoperative changes around the knee including skin clips, a surgical drain, soft tissue edema, and subcutaneous gas. IMPRESSION: Expected postoperative changes status post right knee arthroplasty. No acute fracture is seen. ACT 112: Negative or not required by law. Electronically signed by: Ishmael Marcelino M.D. 07/16/2023 3:21 PM
[2023-07-17] MEDS: lisinopril 20 MG TAB PO SCH (08:39)
[2023-07-17] MEDS: MULTIVITAMIN TAB PO SCH (08:39)
[2023-07-17] MEDS ORDERED: metFORMIN HCL 500 MG TAB PO SCH (09:00)
--- NOTE | 2023-07-17 11:09 | Pharmacy Report ---
Pharmacy Glycemic Short Note 2 - Date of Service July 17, 2023 - Glycemic Short BSG Results (Last 24 hours): 07/16/23 07/16/23 07/16/23 11:34 14:55 16:41 Glucose POC Glucose 128 H 143 H 170 H 07/16/23 07/17/23 07/17/23 20:54 05:35 07:38 Glucose 141 H POC Glucose 183 H 130 H OUTPATIENT ANTIDIABETIC REGIMEN: * Metformin 500 mg PO QAM ASSESSMENT: * 77 y/o M admitted for R TKA. Patient with history of Type 2 diabetes managed only on Metformin at home. Metformin on hold as in-patient. * Patient received IV steroid in OR yesterday. * He was started on basal insulin 10 units at HS based on stress of 1. Novolog initiated at dinner based on stress of 2. * BSGs yesterday were [phone] mg/dl. Fasting BSG today was 130 mg/dl. * Will hold off further basal insulin doses since steroids are not continued. Continue with only Novolog. * Metformin could be resumed tomorrow patient's diet is good. PLAN FOR INPATIENT GLYCEMIC CONTROL: * Hold outpatient oral diabetes medications * Basal insulin * Lantus 10 units SQ x 1 last night. Hold further basal doses. * Bolus insulin * NovoLog per scale ACHS or Q6hrs while NPO * Goal Range: Low 110 mg/dL - High 140 mg/dL * Correction Factor: 25 mg/dL/unit * Nutritional / Prandial insulin per carb ratio of 1 unit per 9 grams CHO consumed
--- NOTE | 2023-07-17 12:21 | Hospitalist Progress Note ---
Date of Service July 17, 2023 Assessment & Plan (1) Status post right knee replacement: (2) Osteoarthritis of right knee: Plan: -POD#1 s/p right TKA with Dr. Winter. -Per ortho for pain control, wound care, anticoagulation and activities -Monitor H&H, continue incentive spirometry, PT/OT when appropriate; pre-op Hgb was 13.3, stable at 12 on discharge -EBL: 5mL (3) Hypertension: Plan: -Continue lisinopril (4) Diabetes mellitus, type 2: Plan: -A1c 7.2 on 06/18/2023 -Held home metformin -Novolog sliding scale per glycemic pharmacist, appreciate their glycemic management (5) Sleep apnea: Plan: -Continue BiPAP HS (6) Hyperlipidemia: Plan: -Chronic, stable -Continue pravastatin (7) Depression: Plan: -Chronic, stable -Continue sertraline DVT Prophylaxis: SCDs Code Status: Full Code PCP: Fermin Ortega MD Dispo: Per primary team Thank you for this consultation. We will follow the patient with you during their hospital stay. You can reach a [facility] via [employer]. Admission and Anticipated Discharge Date Admission Date: July 16, 2023 Subjective pt was seen while sitting on the bed. Drain visible, knee bandaged. at bedside. will be discharged today. Review of Systems Review of Systems: All systems reviewed & are unremarkable except as noted in Subjective Physical Exam Physical Exam: General: Alert, oriented. No acute distress Skin: No noted rashes or bruises Psych: Appropriate mood and affect Neuro: difficulty with knee movements HEENT: NC/AT Chest: Nontender to palpation. CV: RRR Resp: Breath sounds clear bilaterally, no increased effort of breathing. Abdomen: Soft, nontender, nondistended. Extremities: Right knee bandaged, drain in place Results & Data Results & Data Vital Signs (Past 12 Hours) Vital Signs Temp Pulse Resp BP Pulse Ox O2 Del Method 07/17/23 07:35 36.3 C L 56 L 16 169/84 H 95 Room Air 07/17/23 03:00 36.3 C L 65 18 147/77 H 96 Room Air
--- NOTE | 2023-07-17 15:16 | Discharge Summary ---
Date of Service July 17, 2023 Admission HPI Per Admitting Provider 77-year-old male with chronic progressive right knee pain failed conservative management. Had previous steroid and viscosupplementation injections. Injections are no longer helping. Patient denies headaches, sweats, fevers, chills, double vision, blurred vision, cough, sore throat, dysphagia, chest pain, sob, wheezing, n/v/d/c, fatigue, urinary symptoms. ROS positive for sleep apnea snoring, hypertension, left hand numbness, anxiety/depression, questionable easy bruising degenerative arthritis. Admission Exam Per Admitting Provider Physical Exam Constitutional: WD/WN, vitals as above Respiratory: normal respiratory effort; no respiratory distress Cardiovascular: Rate/Rhythm: regular rate and regular rhythm Musculoskeletal: Right knee exam demonstrates 5 through 120 degrees range of motion with knee effusion medial joint line tenderness mild medial pseudolaxity. Skin: no rashes, warm and dry Neurologic: normal touch/pain/proprioception Psychiatric: A+Ox3, euthymic affect Principal Diagnosis Right Knee Djd Discharge Data Allergies Allergy/AdvReac Type Severity Reaction Status Date / Time No Known Allergies Allergy Unknown Verified 07/16/23 11:31 Consultations 07/11/23 13:23 Consult Hospitalist Routine Procedures Performed Operation Date: 07/16/23 12:45 Actual Procedures p Right Total Knee Arthroplasty(Right) - Aleksey Winter MD Ordered Studies 07/16/23 05:00 US - OR guided needle placemen Routine Hospital Course (1) Osteoarthritis of right knee: Patient: KELLI BAKER Admit Date: 07/16/23 MR#: [id number] Att Phy: Aleksey Winter M.D. Acct ID: [id number] [facility] Phy: Fermin Ortega MD Date: 1945 [facility] Phy: Age: 77 Location: 3N Sex: M Room/Bed: N376-1 cc: ~ *NOTICE TO RECEIVING LIBERTARIAN/AGENCY This information is strictly Confidential and protected under [place] law. [place] law prohibits you from making any further disclosure of this information unless further disclosure is expressly permitted by the written consent of the person to whom it pertains or is authorized by law. A general authorization for the release of medical or other information is not sufficient for this purpose. Hospital accepts no responsibility if the information is made available to any other person, INCLUDING THE PATIENT. Date of Service July 17, 2023 Assessment & Plan (1) Osteoarthritis of right knee: Plan: Postop day 1 status post right total knee arthroplasty PT/OT protocols. Weightbearing as tolerated. DVT prophylaxis-aspirin p.o. twice daily, Amandeep, YOLANDA stanley. Pain management as written. DC planning-patient is planning for home health services upon discharge. Patient will need his drain removed if possible from the home health services on postop day 2. If home health is unable to accommodate, patient will need to return to the clinic tomorrow for drain removal and dressing change. Admission and Anticipated Discharge Date Admission Date: July 16, 2023 Subjective Postop day 1 Patient sitting up in bed awake and alert. No complaints this morning. Pain is controlled. Patient states he had a good night. Denies shortness of breath, chest pain, lightheadedness. Patient is hoping to go home today. Physical Exam Physical Exam: Dressings are clean, dry, and intact. Calves are soft nontender. Neurovascular intact. Toes are mobile. Patient had 175 cc of drainage from the previous shift from his Hemovac. Results & Data Vital Signs (Past 12 Hours) Vital Signs Temp Pulse Resp BP Pulse Ox O2 Del Method 07/17/23 07:35 36.3 C L 56 L 16 169/84 H 95 Room Air 07/17/23 03:00 36.3 C L 65 18 147/77 H 96 Room Air 07/16/23 23:00 36.8 C 73 19 133/69 96 Room Air Laboratory Results Laboratory Results WBC 9.05 K/ul (4.8-10.8) 07/17/23 05:35 RBC 4.14 M/uL (4.70-6.10) L 07/17/23 05:35 Hgb 12.5 g/dl (14.0-18.0) L 07/17/23 05:35 Hct 37.3 % (42.0-52.0) L 07/17/23 05:35 MCV 90.1 fL (80.0-100.0) 07/17/23 05:35 MCH 30.2 pg (25.0-34.0) 07/17/23 05:35 MCHC 33.5 g/dL (32.0-36.0) 07/17/23 05:35 RDW Std Deviation 40.9 fL (36.4-46.3) 07/17/23 05:35 RDW Coeff of Cici 12.5 % (11.5-14.5) 07/17/23 05:35 Plt Count 191 K/uL (130-400) 07/17/23 05:35 MPV 11.0 fL (9.4-12.4) 07/17/23 05:35 Sodium 139 mmol/L (136-145) 07/17/23 05:35 Potassium 4.0 mmol/L (3.5-5.1) 07/17/23 05:35 Chloride 106 mmol/L (98-107) 07/17/23 05:35 Carbon Dioxide 27 mmol/L (21-32) 07/17/23 05:35 Anion Gap 6 (3-11) 07/17/23 05:35 BUN 19 mg/dl (6-23) 07/17/23 05:35 Creatinine 0.97 mg/dl (0.6-1.4) 07/17/23 05:35 Est Cr Clr Drug Dosing 58.7 ml/min 07/17/23 05:35 Est GFR ( Amer) 86.3 ml/min 07/17/23 05:35 Est GFR (Non-Af Amer) 74.5 ml/min 07/17/23 05:35 BUN/Creatinine Ratio 19.6 (10-20) 07/17/23 05:35 Glucose 141 mg/dl (70-99(Fasting)) H 07/17/23 05:35 POC Glucose 130 mg/dl (70-99) H 07/17/23 07:38 Calcium 8.4 mg/dl (8.6-10.3) L 07/17/23 05:35 Impressions Knee X-Ray 07/16/23 15:03 TWO VIEWS RIGHT KNEE CLINICAL HISTORY: Postoperative examination. FINDINGS: AP and crosstable lateral portable views of the right knee are obtained. A right knee arthroplasty is in near anatomic alignment. There has been undersurface remodeling of the patella. No acute fracture is seen. There are expected postoperative changes around the knee including skin clips, a surgical drain, soft tissue edema, and subcutaneous gas. IMPRESSION: Expected postoperative changes status post right knee arthroplasty. No acute fracture is seen. ACT 112: Negative or not required by law. Electronically signed by: Ishmael Marcelino M.D. 07/16/2023 3:21 PM Signed By: <Electronically signed by Aleksey Winter MD> 07/17/23 0755 <Electronically signed by Juan R Galo PA-C> 07/17/23 0743 Created: 07/17/23 0741 Total Time Total Time Spent Total Time Spent (In Minutes): 5 Discharge Plan Discharge Items Patient Disposition: Home - Home Health Services Reason For Visit: RIGHT KNEE DJD Discharge Diagnosis: Osteoarthritis Right Knee Activity: Per Instructions section Weightbearing: Full weightbearing Non-emergency contact: Surgeon Call non-emergency contact if: you have any medication questions, your pain is not controlled, your temperature is above 101.5, your wound has increased redness and your wound has increased drainage Follow-up/Referrals: Fermin Ortega MD [Primary Care Provider] - Aleksey Winter MD [Surgeon] - (Follow up with Dr. Winter in 2 weeks from the day of your surgery for your first post operative visit) Diet: Regular Addtl Attending Provider Instructions: ACTIVITY RECOMMENDATIONS: SELF CARE INSTRUCTIONS AFTER TOTAL KNEE REPLACEMENT A. You may need to continue a physical therapy program after discharge from the hospital. There are several options available to you. Your doctor will assist you in selecting the best one for you. 1. An out-patient facility 2 to 3 times a week for therapy or home therapy. 2. Continue working on all exercises taught to you in the hospital. Your goals should be to increase bending of your knee to 90 degrees and beyond and to fully straighten your knee. B. You may progress at your own pace from walking with a walker or crutches to a cane; then to no assistive devices. C. Make walking a part of your daily routine. Be up as much as comfortable with rest periods throughout the day. Rest with leg elevation is very important. Use the ice wrap frequently for the first 3-4 weeks. D. There are no restrictions on activities. You may ride in a car, shop, participate in user experience developer and all social activities. E. Wear the long elastic stockings (YOLANDA hose) 20 hours a day for 2 weeks after surgery. They can be removed several times a day for laundering and for a bath. F. You may shower, no tub baths until cleared by your doctor. SPECIAL CARE INSTRUCTIONS: VERY IMPORTANT TO READ AND REVIEW A. There are a few signs you need to watch for after you are home. Call [facility] if you notice any of the followin. Increased severe knee pain. Some pain is expected especially when you exercise. 2. Increased swelling in your leg or knee; pain or swelling of the calf muscle in either lower leg. 3. Any fluid drainage from the incision. 4. Shortness of breath or chest pain. B. Please call [facility] at if you have any concerns or questions about your operation or recovery. The doctor or his nurse will return your call promptly. C. You must take antibiotics before dental work, bladder, bowel or other surgery. Your doctor will provide you with a permanent care to carry describing this precaution. IMPORTANT: * REMEMBER TO TAKE ASPIRIN, 81 MG, TWICE DAILY FOR 4 WEEKS UNLESS OTHERWISE DIRECTED. THIS IS YOUR BLOOD THINNER. * CALL IF INCREASED PAIN, REDNESS, DRAINAGE OR FEVER GREATER THAT 101. * WEAR YOLANDA HOSE 20 HOURS PER DAY FOR 2 WEEKS. * JAYLIN Dressing - This is a large suction dressing covering your incision. This will help pull any excess drainage from the wound and allow your incision to heal properly. You may shower with this if you can keep the unit outside of the shower. If any bleeding or leakage is noted please call your doctor's office. This will remain on your incision for 7 days and then should be removed. This can be done yourself or by the home nursing staff if applicable. The entire unit is disposable once removed. Once removed, keep incision clean and dry. If redness or drainage is noted, please call your surgeon. . If your wound continues to drain after the jaylin dressing is removed, keep the wound covered with sterile 4 x 4 gauze or an ABD pad. FOLLOW UP VISIT: If appointment is not already scheduled: Please call [facility] to make a follow-up appointment for 2 weeks after your surgery at . Stand-Alone Forms: My [employer], Smoking Cessation Medications and DC Order Prescriptions: New aspirin 81 mg Tablet,Delayed Release (Dr/Ec) 81 mg PO BID 30 Days Qty: 60 0RF acetaminophen [Tylenol Extra Strength] 500 mg Tablet 1,000 mg PO Q8 14 Days Qty: 84 0RF polyethylene glycol 3350 [Miralax] 17 gram powder in packet 17 g PO DAILY PRN (Reason: constipation) Qty: 5 0RF oxycodone 5 mg tablet 5 mg PO Q4H MDD 6 PRN (Reason: pain) Qty: 30 0RF Continued multivitamin Tablet 1 tab PO QAM sertraline 100 mg tablet 100 mg PO HS lisinopril 20 mg Tablet 20 mg PO DAILY metformin 500 mg Tablet 500 mg PO QAM pravastatin 10 mg Tablet 10 mg PO HS Fiber (psyllium husk-sugar) 3.4 gram/7 gram Powder 1 tsp PO HS Held docosahexaenoic acid-epa Capsule 1 cap PO HS Hold Instructions: Hold for 1 week then resume. Patient Comments: jennifer Lehman/Other Patient Handouts: Knee Replace Home Recovery, Knee Replacement Post Op Admission Data Admit Date/Time: 07/16/23 15:03 Attending Provider: Aleksey Winter Admit Provider: Aleksey Winter Primary Care Provider: Fermin Ortega Other Providers: Johann Farrar; [facility],Home Healthcare Other Interventions: Discharge Summary Assessment (RN) Last Done: 07/17/23 12:37
--- OUTSIDE RECORDS SUMMARY | 2023-07-18 03:16 | External Medical Summary | Summary of Care ---
Author Name Unknown Organization [facility] Address [address] [place] [address] Phone [phone] Care Team Providers Care Energy Sales Broker Name Role Phone Fermin Ortega MD Primary Care Provider [phone]- [phone] Reason for Visit * Reason Comments pre-op exam Patient is here toda y for a pre-op procedure. Patient states he is having an operation done on his right knee. Patient states no concerns today. Patients states a pre-op EKG has already been completed. Encounter Details Date Type Department Care Team (Latest Contact Info) Description 06/24/2023 11:00 AM EDT Office Visit [facility] [id number] [place] [address] JulyAdria MD [address] [place] [address] Primary osteoarthritis of both knees*; Type 2 diabetes mellitus with hemoglobin A1c goal of less than 8.0% ([facility]); Dyslipidemia; HTN, goal below 140/90; LIZA on CPAP; Major depressive disorder with single episode, in full remission ([facility]); Pre-operative cardiovascular examination; Type 2 diabetes mellitus with diabetic dermatitis, without long-term current use of insulin ([facility]) Allergies Active Allergy Reactions Criticality Noted Date Comments Influenza Vaccines 12/21/2018 Has since had the flu vaccine without a problem. documented as of this encounter (statuses as of 06/24/2023) Medications Medication Sig Dispensed Refills Start Date End Date Status MULTIVITAMINS PO CAPS 1 capsule daily 0 Active Glucosamine 500 MG Capsule 1 Capsule in the morning and 1 Capsule before bedtime. 0 Active [place]-3 Fatty Acids (FISH OIL) 1000 MG Capsule Take 1 Capsule by mouth in the morning. 0 Active Lisinopril 20 MG Oral Tablet (Prinivil) Take 1 Tablet by mouth in the morning. 0 Active Pravastatin Sodium 10 MG Oral Tablet (Pravachol) Take 1 Tablet by mouth in the morning. 0 Active Sertraline HCl 100 MG Oral Tablet (Zoloft) TAKE 1 TABLET DAILY 90 Tablet 3 07/10/2021 Active CPAP every night at bedtime. 0 Active metFORMIN HCl ER 500 MG Oral Tablet Extended Release 24 Hour (Glucophage XR)Indications:Type 2 diabetes mellitus with diabetic dermatitis, without long-term current use of insulin (HCC) Take 1 Tablet by mouth in the morning. Dx E11.9. 90 Tablet 3 10/29/2022 Active documented as of this encounter (statuses as of 06/24/2023) Active Problems Problem Noted Date Diagnosed Date Type 2 diabetes mellitus wit h hemoglobin A1c goal of less than 8.0% 02/20/2023 Major depressive disorder wi th single episode, in full remission 01/10/2020 Type 2 diabetes mellitus with diabetic dermatiti s 01/10/2020 History of adenomatous polyp of colon 09/24/2017 LIZA on CPAP 08/29/2017 History of Guillain-[place] syndrome 09/19/2016 Dyslipidemia 09/19/2016 Eczematous dermatitis 03/24/2012 HTN, goal below 140/90 10/18/2008 documented as of this encounter (statuses as of 06/24/2023) Resolved Problems Problem Noted Date Diagnosed Date Resolved Date Type 2 diabetes mellitus wit h hemoglobin A1c goal of less than 7.0% 10/29/2022 02/20/2023 Prediabetes 04/29/2017 07/06/2019 Overview: Per Prediabetes protocol #1 Iron deficiency anemia 09/19/201609/24 Epidermal inclusion cyst 03/24/201208/2016 Benign neoplasm of colon 09/26/200801/2018 Overview: hyperplastic/repeat colonoscopy in 5 yrs JOINT PAIN-LEFT SHOULDER 01/12/200308/2016 ROTATOR CUFF SYND NOS 01/12/20032016 Acute infective polyneuritis 02/09/2001 09/19/2016 Lipoma 10/12/1998 09/19/2016 Overview: ICD-10 update of inactive term NONE 08/28/2011 Guillain-[place] disease 09/19 documented as of this encounter (statuses as of 06/24/2023) Immunizations Name Administration Dates Next Due COVID-19 mRNA, LNP-s, No Pre serve, 2-Dose Series (Pfizer) 05/11/2020,04/20/2020 Pneumococcal Conjugate Vacc, 13 Valent (Prevnar) 09/19/2015 Pneumococcal Polysaccharide PPV23 (Pneumovax) 11/26/2013,06/04/2010 Seasonal Influenza, Quadriva lent, No Preserve, IM 01/03/2023,01/01/2022,01/03/2021,01/06,12/27/2014 Seasonal Influenza, Split, I IV3, With Preserve, Inj 11/22/2013 TD, Preservative Free 01/03/2021,06/04/2010 Zoster Vaccine Recombinant (Shingrix) 04/07/2019 ,12/25/2018 documented as of this encounter Social History Tobacco Use Types Packs/Day Years Used Date Smoking Tobacco: Former Pipe Smokeless Tobacco: Former Chew Quit: 08/08/1982 Comments:Smoked about 4 ciga rs a day Alcohol Use Standard Drinks/Week Comments No 0 (1 standard drink = 0.6 oz pur e alcohol) PHQ-2 Answer Date Recorded PHQ Adult Total Score 0 02/04/2022 Hunger Vital Sign Answer Date Recorded Worried About Running Out of Food in the Last Ye ar Never true 11/05/2018 Ran Out of Food in the Last Year Never true 11/05/2018 Sex and Gender Information Value Date Recorded Sex Assigned at Not on file Gender Identity Not on file Sexual Orientation Straight 11/05/2018 7: 34 AM EDT Job Start Date Occupation Industry Not on file Not on file Not on file documented as of this encounter Last Filed Vital Signs Vital Sign Reading Time Taken Comments Blood Pressure 108/64 06/24/2023 11:03 AM EDT Pulse 65 06/24/2023 11:03 AM EDT Temperature 36.5 C (97.7 F) 06/24/2023 1 1:03 AM EDT Respiratory Rate 16 06/24/2023 11:0 3 AM EDT Oxygen Saturation 98% 06/24/2023 11: 03 AM EDT Inhaled Oxygen Concentration - - Weight 78.8 kg (173 lb 12.8 oz) 024 11:03 AM EDT Height 169 cm (5' 6.54") 06/24/2023 11: 03 AM EDT Body Mass Index 27.6 06/24/2023 11:03 AM EDT documented in this encounter Progress Notes * Adria Rios MD - 06/24/2023 11:29 AM EDT Images from the original note were not included. Assessment and Plan 77-year-old male who presents for preop evaluation prior to right TKA scheduled for 07/16/2023 with[facility]OC. Low risk for this low risk procedure. Risk factors are well-controlled. No changes to medications or further testing needed prior to procedure. At this point he was appropriate to proceed as scheduled. 1. Primary osteoarthritis of both knees 2. Type 2 diabetes mellitus with hemoglobin A1c goal of less than 8.0% ([facility]) 3. Dyslipidemia 4. HTN, goal below 140/90 5. LIZA on CPAP 6. Major depressive disorder with single episode, in full remission ([facility]) 7. Pre-operative cardiovascular examination Wrap-Up Follow up as scheduled with PCP. History of Present Illness The patient is a 77-year-old male with past medical history of type 2 diabetes, dyslipidemia, LIZA on CPAP, hypertension, depression who presents for preop evaluation prior to right TKA on 07/16/2023 with [facility]OC. Bilateral knee pain. Pain with daily activities. Failed steroid injections. Reviewed lab work completed 06/18/2023. This shows hemoglobin of 13.3, normal renal function. EKG normal sinus rhythm. Reviewed medications. He currently takes metformin for well-controlled diabetes with A1c 7.2. Sertralinefor depression, lisinopril for well-controlled hypertension with blood pressure 108/64 in office today. He was appropriately on a statin. He has no history of anesthesia complications. He denies chest pain or shortness of breath. Leak criteria score is 0 indicating around 3% risk of cardiovascular complication from this low risk surgery. 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) Personal history of colonic polyps 03/17/2000 Sleep apnea, obstructive Past Surgical History: Procedure Laterality Date COLONOSCOPY W/ LESION REMOVAL, SNARE 09/26/08 4 polyps and diverticulosis/hyperplastic/repeat colonoscopy in 5 yrs COLONOSCOPY, DIAGNOSTIC (RECTUM) 10/29/2013 hyperplastic polyp, diverticulosis, repeat 5 yrs/COLONOSCOPY FLEXIBLE PROXIMAL DIAGNOSTIC performedby Dusty Casanova MD at [facility] COLONOSCOPY, DIAGNOSTIC (RECTUM) 11/30/2018 hyperplastic polyp, repeat 5 yrs/COLONOSCOPY FLEXIBLE PROXIMAL DIAGNOSTIC performed by Dusty Casanova MD at [facility] COLONOSCOPY, REMOVE LESION 01/15 numerous colonic polypectomy; repeat 2003 INFORMATION 1998 benign cyst excised from back IOF CT HEAD/BRAIN WO CONTRAST 04/28/01 normal REMOVAL OF APPENDIX age 8 REMOVE WRIST GANGLION 1995 right wrist UPPER GI ENDOSCOPY/EXAM 01/15 normal Review of patient's allergies indicates: Allergen Reactions Influenza Vaccines Has since had the flu vaccine without a problem. Family History Problem Relation Age of Onset Diabetes Mother Heart Disorder Father MA at age 62 Heart Disorder Brother CABG at age 65 Heart Disorder Brother MA at age 65 Stroke Brother age 65 Heart Disorder Brother MA age 60's Cancer Brother Stomach cancer Cancer Sister stomach cancer Cancer Sister stomach cancer Cancer Sister Questionable colon cancer Social History Socioeconomic History Marital status: Spouse name: Not on file Number of children: Not on file Years of education: Not on file Highest education level: Not on file Occupational History Not on file Tobacco Use Smoking status: Former Types: Pipe Smokeless tobacco: Former Types: Chew Quit date: 08/08/1982 Tobacco comments: Smoked about 4 cigars a day Vaping Use Vaping Use: Never used Substance and Sexual Activity Alcohol use: No Drug use: No Sexual activity: Yes Partners: Female Other Topics Concern Not on file Social History Narrative Not on file Social Determinants of Health Financial Resource Strain: Not on file Food Insecurity: No Food Insecurity (11/05/2018) Hunger Vital Sign Worried About Running Out of Food in the Last Year: Never true Ran Out of Food in the Last Year: Never true Transportation Needs: Not on file Physical Activity: Not on file Stress: Not on file Social Connections: Not on file Intimate Partner Violence: Not on file Housing Stability: Not on file Physical Exam Vitals: 06/24/23 1103 Temp: 36.5 C (97.7 F) Pulse: 65 Resp: 16 SpO2: 98% BP: 108/64 BMI: 27.6 Physical Exam Physical Exam Vitals reviewed. Constitutional: General: He is not in acute distress. Cardiovascular: Rate and Rhythm: Normal rate and regular rhythm. Heart sounds: No murmur heard. Pulmonary: Effort: Pulmonary effort is normal. No respiratory distress. Breath sounds: Normal breath sounds. Musculoskeletal: Cervical back: Neck supple. Right lower leg: No edema. Left lower leg: No edema. Comments: Crepitus with passive motion of the right knee. Lymphadenopathy: Cervical: No cervical adenopathy. Neurological: General: No focal deficit present. Mental Status: He is alert. This note has been completed in part utilizing [employer] - is now [employer] Speech Voice Recognition Software. Due to technical limitations of the software, grammatical errors, random word insertions, prounoun errors, and incomplete sentences may occur. Any formal questions or concerns about the content, text, or information contained within the body of this dictation should be directly addressed to the provider for clarification. documented in this encounter Nursing Notes * Danika Howell LPN - 06/24/2023 11:05 AM EDT The patient has been properly identified by confirmation of name and date of . Chief Complaint Patient presents with pre-op exam Patient is here today for a pre-op procedure. Patient states he is having an operation done on his right knee. Patient states no concerns today. Patients states a pre-op EKG has already been completed. documented in this encounter Plan of Treatment Upcoming Encounters Date Type Department Care Team (Late st Contact Info) Description 09/02/2023 8:40 AM EDT [facility] [address] [facility] [phone] Fermin Ortega MD [address] [place] [facility] [place] [place] [address] Scheduled Procedures Name Priority Associated Diagnoses Date/Ti me COLONOSCOPY FLEXIBLE PROXIMA L DIAGNOSTIC Recall Family history of colon cancer Health Maintenance Due Date Last Done Comments Hepatitis C Screening 1963 Albumin/Creatinine Ratio 07/27/2022 022, 07/10/2020, 10/04/2019 COVID-19 Vaccine ( - 2022- season) 2022 03/27/2021, 02/21/2021, 05/11/2020, Additional history exists COLONOSCOPY-EVERY 5 YRS AGES 18-100 12/01/2023 11/30/2018, 11/30/2018, 10/29/2013, Additional history exists HbA1c 12/18/2023 06/18/2023, 07/15, 07/27/2021, Additional history exists Diabetic Eye Exam 02/20/2024 02/19/2023, , 02/13/2021, Additional history exists Diabetic Foot Exam 02/21/2024 02/20/2023, 07/10/2020 GFR 06/17/2024 06/18/2023, 07/15, 07/27/2021, Additional history exists DTaP,Tdap,and Td Vaccines (4 - Tdap) 01/03/2031 01/03/2021, 06/04/2010, 03/17/2000 Pneumococcal Vaccine: 65+ Years Completed 09/19/2015, 03/17/2015, 11/26/2013, Additional history exists Zoster Vaccines Completed 04/07/2019, 12/25/2018 Influenza Vaccine (FLU shot) Completed , 01/01/2022, 01/03/2021, Additional history exists GARDASIL-HPV IMMUNIZATION SERIES Aged Out No longer eligible based on patient's age to complete this topic Hepatitis B Aged Out No longer eligi ble based on patient's age to complete this topic MENINGOCOCCAL (MENACTRA/MENVEO) Aged Out No longer eligible based on patient's age to complete this topic documented as of this encounter Medical Devices Not on filedocumented as of this encounter Visit Diagnoses Diagnosis Primary osteoarthritis of both knees- Primary Primary localized osteoarthrosis, lower leg Type 2 diabetes mellitus with hemoglobin A1c goal of less than 8.0% (HCC) Dyslipidemia Other and unspecified hyperlipidemia HTN, goal below 140/90 Unspecified essential hypertension LIZA on CPAP Obstructive sleep apnea (adult) (pediatric) Major depressive disorder with single episode, in full remission (HCC) Pre-operative cardiovascular examination Type 2 diabetes mellitus with diabetic dermatitis, without long-term current use of insulin (HCC) documented in this encounter Care Teams Energy Sales Broker Relationship Specialty Start Date End Date Fermin Ortega MD [address] [place] [address] PCP - General 05/14/02 documented as of this encounter
--- OUTSIDE RECORDS SUMMARY | 2023-07-18 03:17 | External Medical Summary | Summary of Care ---
Author Name Unknown Organization [facility] Address [address] [facility] [place] [address] Phone [phone] Care Team Providers Care Reimbursement Analyst Name Role Phone Fermin Ortega MD Primary Care Provider [phone]- [phone] Encounter Details Date Type Department Care Team (Late st Contact Info) Description 06/18/2023 Result Scan Unspecified Department <No scans attached> Allergies Active Allergy Reactions Criticality Noted Date Comments Influenza Vaccines 12/21/2018 Has since had the flu vaccine without a problem. documented as of this encounter (statuses as of 06/24/2023) Medications Medication Sig Dispensed Refills Start Date End Date Status MULTIVITAMINS PO CAPS 1 capsule daily 0 Active Glucosamine 500 MG Capsule 1 Capsule in the morning and 1 Capsule before bedtime. 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 documented as of this encounter [...] on file documented as of this encounter Plan of Treatment Upcoming Encounters Date Type Department Care Team (Late st Contact Info) Description 06/24/2023 11:00 AM EDT Office Visit [facility] [address] [place] [phone] JulyAdria MD [address] [place] [address] 09/02/2023 8:40 AM EDT Office Visit [facility] [address] [place] [phone] Fermin Ortega MD [address] [place] [address] Scheduled Procedures Name Priority Associated Diagnoses Date/Ti me COLONOSCOPY FLEXIBLE PROXIMA L DIAGNOSTIC Recall Family history of colon cancer Health Maintenance Due Date Last Done Comments Hepatitis C Screening 1963 Albumin/Creatinine Ratio 07/27/2022 022, 07/10/2020, 10/04/2019 COVID-19 Vaccine ( season) 2022 03/27/2021, 02/21/2021, 05/11/2020, Additional history [...] Not on filedocumented as of this encounter Procedures Procedure Name Priority Date/Time Associated Diagnosis Comments EKG SCANNED RESULT 06/18/2023 RADIOLOGY SCANNED RESULT 06/18/2023 RADIOLOGY SCANNED RESULT 06/18/2023 documented in this encounter Results * RADIOLOGY SCANNED RESULT (06/18/2023) 06/18/2023 No Physician Data Unknown DIAGNOSTIC RAD IOLOGY SERVICES * RADIOLOGY SCANNED RESULT (06/18/2023) 06/18/2023 No Physician Data Unknown DIAGNOSTIC RAD IOLOGY SERVICES * EKG SCANNED RESULT (06/18/2023) 06/18/2023 No Physician Data Unknown EKG documented in this encounter Care Teams Reimbursement Analyst Relationship Specialty Start Date End Date Fermin Ortega MD [address] [place] [address] PCP - General 05/14/02 documented as of this encounter
--- OUTSIDE RECORDS SUMMARY | 2023-07-18 03:18 | External Medical Summary | Summary of Care ---
Author Name Unknown Organization [facility] Address [address] [place] [address] Phone [phone] Care Team Providers Care Office Machine Embossograph Operator Name Role Phone Fermin Ortega MD Primary Care Provider +1- [phone] Encounter Details Date Type Department Care Team (Late st Contact Info) Description 06/24/2023 Orders Only [facility] [address] [place] [address] Fermin Ortega MD [address] [place] [address] Allergies Active Allergy Reactions Criticality Noted Date Comments Influenza Vaccines 12/21/2018 Has since had the flu vaccine without a problem. documented as of this encounter (statuses as of 06/24/2023) Medications Medication Sig Dispensed Refills Start Date End Date Status MULTIVITAMINS PO CAPS 1 capsule daily 0 Active Glucosamine 500 MG Capsule 1 Capsule in the morning and 1 Capsule before bedtime. 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 Dyslipidemia 09/19/2016 Eczematous dermatitis 03/24/2012 [...] ICD-10 update of inactive term NONE 08/28/2011 Guillain-Cyg[place] disease 09/19 documented as of this encounter [...] Description 06/24/2023 11:00 AM EDT Office Visit [facility] [address] [facility] [place] [address] JulyAdria MD [address] [facility] [place] [phone] 09/02/2023 8:40 AM EDT Office Visit [facility] [address] [facility] [place] [address] Fermin Ortega MD [address] [facility] [place] [phone] Scheduled Procedures Name Priority Associated Diagnoses Date/Ti [...] Procedure Name Priority Date/Time Associated Diagnosis Comments CHEMISTRY-OUTSIDE Routine 06/18/2023 documented in this encounter Results * (ABNORMAL) CHEMISTRY-OUTSIDE (06/18/2023) Not all results display below - see scan for full detail OUTSIDE LAB (SEE SCANNED REPORT) Comment:SCAN INCL: PREADM LA BS: UA,CBCD,PT,INR,PTT, PTTR,BMP, ALB,HA1C CREATININE-OUTSID E LAB 0.99 0.6 - 1.4 MG/DL OUTSIDE LAB (SEE SCANNED REPORT) EGFR-OUTSIDE LAB 72.6 OUT SIDE LAB (SEE SCANNED REPORT) POTASSIUM-OUTSIDE LAB 4.0 3.5 - 5.1 MMOL/L OUTSIDE LAB (SEE SCANNED REPORT) GLUCOSE-OUTSIDE LAB 195(A) 70 - 99 MG/DL OUTSIDE LAB (SEE SCANNED REPORT) HOURS FASTING OUTSID E LAB (SEE SCANNED REPORT) TRIGLYCERIDES-OUT SIDE LAB OUTSIDE LAB (SEE SCANNED REPORT) CHOLESTEROL-OUTSI DE LAB OUTSIDE LAB (SEE SCANNED REPORT) HDL-OUTSIDE LAB OUTS PEGGY LAB (SEE SCANNED REPORT) CHOL/HDL RATIO-OUTSIDE LAB OUTSIDE LA B (SEE SCANNED REPORT) LDL (CALCULATED)-OUTS PEGGY LAB OUTSIDE LAB (SEE SCANNED REPORT) LDL (DIRECT MEASURE)-OUTSIDE LAB OUTSIDE LAB (SEE SCANNED REPORT) HEMOGLOBIN, S2B-AWPGPRX LAB 7.2(A) 4.5 - 5.6 % OUTSIDE LAB (SEE SCANNED REPORT) PHOSPHORUS-OUTSID E LAB OUTSIDE LAB (SEE SCANNED REPORT) PTH-OUTSIDE LAB OUTS PEGGY LAB (SEE SCANNED REPORT) MICROALBUMIN RATIO-OUTSIDE LAB OUTSIDE LA B (SEE SCANNED REPORT) PROTEIN, UA-OUTSIDE LAB OUTSIDE LAB (SEE SCANNED REPORT) HGB 13.3(A) 14.0 - 18.0 G/DL OUTSIDE LAB (SEE SCANNED REPORT) 06/18/2023 History Per Patient LABORATORY OUTSIDE LAB (SEE SCANNED REPORT) documented in this encounter Care Teams Office Machine Embossograph Operator Relationship Specialty Start Date End Date Fermin Ortega MD [address] [place] [address] PCP - General 05/14/02 documented as of this encounter
== END 2023-07-17 13:17 | disposition home health service (06) ==
LOC: ASU 11:04 → 3N 11:04